=== PATIENT | male | born 1955 | race Caucasian/White ===

== ENCOUNTER 2018-10-27 19:12 | Emergency (ER) | payer OTHER ==
[~2018-10-27] VITALS: Ht 172.7 cm; Wt 70.0 kg
[2018-10-27 19:24] VITALS: Ht 172.7 cm; Wt 70.0 kg
[2018-10-27] MEDS ORDERED: HYDROCODON-ACE1 EAC7 PO (21:00)
[2018-10-27 21:18] VITALS: BP 123/77
== END 2018-10-27 21:19 | disposition home or self-care (01) ==
LOC: D.ER 19:12
DX: S86.911A Strain of unspecified muscle(s) and tendon(s) at lower leg level, right leg, initial encounter (principal); X58.XXXA Exposure to other specified factors, initial encounter; Y93.89 Activity, other specified; Y92.89 Other specified places as the place of occurrence of the external cause

== ENCOUNTER → 2018-12-01 09:55 | Outpatient (CLI) | payer OTHER ==
[2018-10-27 19:24] VITALS: BMI 23.4
[~2018-12-01 09:55] MED LIST: HYDROCODON-ACE1 EAC7 PO
== END | disposition home or self-care (01) ==
LOC: D.MRI 09:55
PROVIDERS: ATTEND Orthopaedic Surgery
DX: M25.561 Pain in right knee (principal)